=== PATIENT | male | born 1985 | race Caucasian/White ===

== ENCOUNTER 2017-04-06 19:33 | Emergency (ER) | payer SELFPAY ==
[~2017-04-06] VITALS: Ht 177.8 cm; Wt 159.1 kg
[~2017-04-06 19:33] MED LIST: FLAGYL500 MG PO; INDOCIN50 MG PO; MOTRIN IB200 MG PO; NO MEDICATIONS; NOHOMEMEDS; NORCO 5/3251 TABLET PO; OMEPRAZOLE40 M1 PO; PRILOSEC10 MG PO; TYLENOL REGULA325 MG PO; ZOFRAN ODT8 MG PO
[2017-04-06] MEDS ORDERED: ULTRAM50 MG PO (20:41)
[2017-04-06] MEDS ORDERED: MOTRIN800 MG PO (20:41)
[2017-04-06 21:34] VITALS: BP 135/79
== END 2017-04-06 21:35 | disposition home or self-care (01) ==
LOC: EME 19:33
DX: S80.12XA Contusion of left lower leg, initial encounter (principal); W23.0XXA Caught, crushed, jammed, or pinched between moving objects, initial encounter; Y99.0 Civilian activity done for income or pay
CPT/HCPCS: 73590; 99281; 99283

== ENCOUNTER 2017-08-06 20:49 | Emergency (ER) | payer SELFPAY ==
[~2017-08-06] VITALS: Ht 177.8 cm; Wt 159.4 kg
[~2017-08-06 20:49] MED LIST changes: +MOTRIN800 MG PO; +ULTRAM50 MG PO
[2017-08-06] MEDS ORDERED: KEFLEX500 MG PO (22:51)
[2017-08-06] MEDS ORDERED: NAPROSYN500 MG PO (22:51)
[2017-08-06 23:07] VITALS: BP 152/107
== END 2017-08-06 23:08 | disposition home or self-care (01) ==
LOC: EME 20:49
DX: L60.0 Ingrowing nail (principal); L08.9 Local infection of the skin and subcutaneous tissue, unspecified
CPT/HCPCS: 99281; 99283